=== PATIENT | female | born 1985 | race Caucasian/White ===

== ENCOUNTER 2020-04-01 07:53 | Outpatient (REF) | payer OTHER, SELFPAY ==
[2020-04-01 11:21] LABS: Free T4 (Free Thyroxine) 1.34 ng/dL (0.71-1.85); Thyroid Stimulating Hormone 2.39 mIU/mL (0.32-4.0)
[2020-04-05 06:27] LABS: Thyroglobulin Antibody <1 IU/mL (<=1); Thyroglobulin Level <0.1 ng/mL
== END 2020-04-01 07:54 | disposition home or self-care (01) ==
LOC: HO.LAB 07:53
PROVIDERS: PCP Pediatrics; Visit Provider Internal Medicine Endocrinology, Diabetes & Metabolism
DX: E89.0 Postprocedural hypothyroidism (principal)
CPT/HCPCS: 36415; 84432; 84439; 84443; 86800

== ENCOUNTER → 2020-04-06 14:47 | Outpatient (BNVA) | payer OTHER, SELFPAY | PROVIDERS: Referring Provider Pediatrics; Visit Provider Internal Medicine Endocrinology, Diabetes & Metabolism | DX: Z76.89 Persons encountering health services in other specified circumstances (principal) ==

== ENCOUNTER 2020-07-06 15:46 | Outpatient (REF) | payer OTHER, SELFPAY ==
[2020-07-06 17:12] LABS: Free T4 (Free Thyroxine) 1.22 ng/dL (0.71-1.85); Thyroid Stimulating Hormone 1.82 uIU/mL (0.32-4.0)
== END 2020-07-06 15:47 | disposition home or self-care (01) ==
LOC: HO.LAB 15:46
PROVIDERS: PCP Pediatrics; Visit Provider Internal Medicine Endocrinology, Diabetes & Metabolism
DX: E89.0 Postprocedural hypothyroidism (principal)
CPT/HCPCS: 36415; 84439; 84443

== ENCOUNTER 2020-09-30 12:38 | Outpatient (REF) | payer OTHER, SELFPAY ==
--- NOTE | ~2020-09-30 | US_ITS ---
EXAMINATION: US SOFT TISSUE NECK CLINICAL INFORMATION: Postprocedural hypothyroidism.Total thyroidectomy. COMPARISON: Ultrasound thyroid soft tissues neck 07/24/2017 and 09/04/2014. TECHNIQUE: Ultrasound of the neck soft tissues is performed with high-frequency mohan-scale imaging and color Doppler. FINDINGS: THYROID BED: Prior thyroidectomy. No residual thyroid tissue demonstrated in the thyroid bed. No cystic or solid nodules demonstrated in the thyroid bed. RIGHT NECK SOFT TISSUES: Scattered architecturally normal nodes are present. The nodes show normal fatty hilus, normal cortical thickness, and no cystic change or calcification. No abnormal color flow. The largest nodes are as follows: Level 1A: 1.0 x 0.5 x 0.6 cm. Normal jaquan architecture. Level 2: 3.7 x 0.7 x 1.2 cm. Normal jaquan architecture. LEFT NECK SOFT TISSUES: Scattered architecturally normal nodes are present. The nodes show normal fatty hilus, normal cortical thickness, and no cystic change or calcification. No abnormal color flow. The largest nodes are as follows: Level 2: 2.3 x 0.5 x 1.1 cm. Normal jaquan architecture. Level 2: 1.0 x 0.4 x 0.6 cm. Normal jaquan architecture. Level 3:1.9 x 0.2 x 0.6 M. Normal jaquan architecture. US/US soft tiss head and/or neck IMPRESSION: 1. Multiple lung nodules. 2. Bilateral benign neck lymph nodes.
[2020-09-30 14:27] LABS: Free T4 (Free Thyroxine) 1.02 ng/dL (0.71-1.85); Thyroid Stimulating Hormone 2.34 uIU/mL (0.32-4.0)
[2020-10-04 06:01] LABS: Thyroglobulin Antibody <1 IU/mL (<=1); Thyroglobulin Level <0.1 ng/mL
== END 2020-09-30 12:39 | disposition home or self-care (01) ==
LOC: HO.US 12:38
PROVIDERS: PCP Pediatrics; Visit Provider Internal Medicine Endocrinology, Diabetes & Metabolism
DX: E89.0 Postprocedural hypothyroidism (principal)
CPT/HCPCS: 36415; 76536; 84432; 84439; 84443; 86800

== ENCOUNTER → 2020-10-05 13:53 | Outpatient (BNVA) | payer OTHER, SELFPAY | PROVIDERS: PCP Pediatrics; Visit Provider Internal Medicine Endocrinology, Diabetes & Metabolism ==

== ENCOUNTER 2020-12-30 07:48 | Outpatient (REF) | payer OTHER, SELFPAY ==
[2020-12-30 09:32] LABS: Free T4 (Free Thyroxine) 1.41 ng/dL (0.71-1.85); Thyroid Stimulating Hormone 0.56 uIU/mL (0.32-4.0)
[2021-01-03 04:07] LABS: Thyroglobulin Antibody <1 IU/mL (<=1); Thyroglobulin Level <0.1 ng/mL
== END 2020-12-30 07:49 | disposition home or self-care (01) ==
LOC: HO.LAB 07:48
PROVIDERS: PCP Pediatrics; Visit Provider Internal Medicine Endocrinology, Diabetes & Metabolism
DX: Z85.850 Personal history of malignant neoplasm of thyroid (principal)
CPT/HCPCS: 36415; 84432; 84439; 84443; 86800

== ENCOUNTER 2021-02-01 15:32 | Outpatient (REF) | payer OTHER, SELFPAY ==
[2021-02-01 16:28] LABS: Thyroid Stimulating Hormone 0.41 uIU/mL (0.32-4.0)
== END 2021-02-01 15:33 | disposition home or self-care (01) ==
LOC: HO.LAB 15:32
PROVIDERS: PCP Pediatrics; Visit Provider Internal Medicine Endocrinology, Diabetes & Metabolism
DX: E89.0 Postprocedural hypothyroidism (principal); Z85.850 Personal history of malignant neoplasm of thyroid
CPT/HCPCS: 36415; 84439; 84443

== ENCOUNTER 2021-03-22 08:59 | Outpatient (REF) | payer OTHER, SELFPAY ==
[2021-03-22 10:12] LABS: Free T4 (Free Thyroxine) 1.33 ng/dL (0.71-1.85); Thyroid Stimulating Hormone 0.15 uIU/mL (0.32-4.0)
== END 2021-03-22 09:00 | disposition home or self-care (01) ==
LOC: HO.LAB 08:59
PROVIDERS: PCP Pediatrics; Visit Provider Internal Medicine
DX: E89.0 Postprocedural hypothyroidism (principal)
CPT/HCPCS: 36415; 84439; 84443

== ENCOUNTER → 2021-03-29 07:26 | Outpatient (BNVA) | payer OTHER, SELFPAY | PROVIDERS: PCP Pediatrics; Visit Provider Internal Medicine ==

== ENCOUNTER 2021-05-03 14:18 | Outpatient (REF) | payer OTHER, SELFPAY ==
[2021-05-03 15:47] LABS: Free T4 (Free Thyroxine) 1.22 ng/dL (0.71-1.85); Thyroid Stimulating Hormone 0.95 uIU/mL (0.32-4.0)
[2021-05-04 10:36] LABS: Thyroglobulin <0.1 ng/mL; Thyroglobulin Antibodies <1 IU/mL (< or = 1)
== END 2021-05-03 14:19 | disposition home or self-care (01) ==
LOC: HO.LAB 14:18
PROVIDERS: PCP Pediatrics; Visit Provider Internal Medicine
DX: Z85.850 Personal history of malignant neoplasm of thyroid (principal)
CPT/HCPCS: 36415; 84432; 84439; 84443; 86800

== ENCOUNTER 2021-06-14 14:25 | Outpatient (REF) | payer OTHER, SELFPAY ==
[2021-06-14 15:29] LABS: Free T4 (Free Thyroxine) 1.21 ng/dL (0.71-1.85); Thyroid Stimulating Hormone 0.76 uIU/mL (0.32-4.0)
== END 2021-06-14 14:26 | disposition home or self-care (01) ==
LOC: HO.LAB 14:25
PROVIDERS: PCP Pediatrics; Visit Provider Internal Medicine
DX: Z85.850 Personal history of malignant neoplasm of thyroid (principal)
CPT/HCPCS: 36415; 84439; 84443

== ENCOUNTER → 2021-06-23 09:26 | Outpatient (BNVA) | payer OTHER, SELFPAY | PROVIDERS: PCP Pediatrics; Visit Provider Internal Medicine ==

== ENCOUNTER 2021-08-09 14:36 | Outpatient (REF) | payer OTHER, SELFPAY ==
[2021-08-09 16:20] LABS: Free T4 (Free Thyroxine) 0.97 ng/dL (0.71-1.85); Thyroid Stimulating Hormone 0.49 uIU/mL (0.32-4.0)
== END 2021-08-09 14:37 | disposition home or self-care (01) ==
LOC: HO.LAB 14:36
PROVIDERS: PCP Pediatrics; Visit Provider Internal Medicine
DX: E89.0 Postprocedural hypothyroidism (principal)
CPT/HCPCS: 36415; 84439; 84443

== ENCOUNTER 2021-09-03 08:34 | Outpatient (REF) | payer OTHER, SELFPAY ==
[2021-09-03 09:51] LABS: Thyroid Stimulating Hormone 0.58 uIU/mL (0.32-4.0)
== END 2021-09-03 08:35 | disposition home or self-care (01) ==
LOC: HO.LAB 08:34
PROVIDERS: PCP Pediatrics; Visit Provider Internal Medicine
DX: E89.0 Postprocedural hypothyroidism (principal)
CPT/HCPCS: 36415; 84443

== ENCOUNTER → 2021-09-06 14:57 | Outpatient (BNVA) | payer OTHER, SELFPAY | PROVIDERS: PCP Pediatrics; Visit Provider Internal Medicine | DX: E89.0 Postprocedural hypothyroidism (principal); R59.0 Localized enlarged lymph nodes; Z79.899 Other long term (current) drug therapy; Z85.850 Personal history of malignant neoplasm of thyroid | CPT/HCPCS: 99212 ==

== ENCOUNTER 2021-11-11 10:41 | Outpatient (REF) | payer BC, SELFPAY ==
[2021-11-11 14:13] LABS: Free T4 (Free Thyroxine) 1.36 ng/dL (0.71-1.85); Thyroid Stimulating Hormone 0.02 uIU/mL (0.32-4.0)
== END 2021-11-11 10:42 | disposition home or self-care (01) ==
LOC: HO.WFDLDS 10:41
PROVIDERS: Visit Provider Internal Medicine
DX: E89.0 Postprocedural hypothyroidism (principal)
CPT/HCPCS: 36415; 84439; 84443

== ENCOUNTER 2021-12-20 12:35 | Outpatient (REF) | payer OTHER, SELFPAY ==
[2021-12-20 14:54] LABS: Thyroid Stimulating Hormone 0.08 uIU/mL (0.32-4.0)
== END 2021-12-20 12:36 | disposition home or self-care (01) ==
LOC: HO.WFDLDS 12:35
PROVIDERS: Visit Provider Internal Medicine
DX: E89.0 Postprocedural hypothyroidism (principal)
CPT/HCPCS: 36415; 84439; 84443

== ENCOUNTER 2022-01-31 10:49 | Outpatient (REF) | payer OTHER, SELFPAY ==
[2022-01-31 14:41] LABS: Free T4 (Free Thyroxine) 1.25 ng/dL (0.71-1.85)
== END 2022-01-31 10:50 | disposition home or self-care (01) ==
LOC: HO.WFDLDS 10:49
PROVIDERS: Visit Provider Internal Medicine
DX: E89.0 Postprocedural hypothyroidism (principal)
CPT/HCPCS: 36415; 84439; 84443

== ENCOUNTER 2022-03-21 12:41 | Outpatient (REF) | payer OTHER, SELFPAY ==
[2022-03-21 14:13] LABS: Free T4 (Free Thyroxine) 1.18 ng/dL (0.71-1.85); Thyroid Stimulating Hormone 1.95 uIU/mL (0.32-4.0)
== END 2022-03-21 12:42 | disposition home or self-care (01) ==
LOC: HO.LAB 12:41
PROVIDERS: PCP Pediatrics; Visit Provider Internal Medicine
DX: E89.0 Postprocedural hypothyroidism (principal)
CPT/HCPCS: 36415; 84439; 84443

== ENCOUNTER 2022-04-29 07:03 | Outpatient (REF) | payer OTHER, SELFPAY ==
[2022-04-29 12:21] LABS: Thyroid Stimulating Hormone 9.97 uIU/mL (0.32-4.0)
== END 2022-04-29 07:04 | disposition home or self-care (01) ==
LOC: HO.WFDLDS 07:03
PROVIDERS: Visit Provider Internal Medicine
DX: E89.0 Postprocedural hypothyroidism (principal)
CPT/HCPCS: 36415; 84443

== ENCOUNTER 2022-06-24 07:07 | Outpatient (REF) | payer OTHER, SELFPAY ==
[2022-06-24 12:49] LABS: Free T4 (Free Thyroxine) 1.27 ng/dL (0.71-1.85); Thyroid Stimulating Hormone 2.88 uIU/mL (0.32-4.0)
== END 2022-06-24 07:08 | disposition home or self-care (01) ==
LOC: HO.WFDLDS 07:07
PROVIDERS: Visit Provider Internal Medicine
DX: E89.0 Postprocedural hypothyroidism (principal)
CPT/HCPCS: 36415; 84439; 84443

== ENCOUNTER 2022-08-12 07:05 | Outpatient (REF) | payer OTHER, SELFPAY ==
[2022-08-12 12:13] LABS: Free T4 (Free Thyroxine) 1.18 ng/dL (0.71-1.85); Thyroid Stimulating Hormone 2.16 uIU/mL (0.32-4.0)
== END 2022-08-12 07:06 | disposition home or self-care (01) ==
LOC: HO.WFDLDS 07:05
PROVIDERS: Visit Provider Internal Medicine
DX: E89.0 Postprocedural hypothyroidism (principal)
CPT/HCPCS: 36415; 84439; 84443

== ENCOUNTER 2022-10-21 07:10 | Outpatient (REF) | payer OTHER, SELFPAY ==
[2022-10-21 12:17] LABS: Free T4 (Free Thyroxine) 1.29 ng/dL (0.71-1.85); Thyroid Stimulating Hormone 1.19 uIU/mL (0.32-4.0)
== END 2022-10-21 07:11 | disposition home or self-care (01) ==
LOC: HO.WFDLDS 07:10
PROVIDERS: Visit Provider Internal Medicine
DX: E89.0 Postprocedural hypothyroidism (principal)
CPT/HCPCS: 36415; 84439; 84443

== ENCOUNTER 2023-01-03 12:30 | Outpatient (REF) | payer OTHER, SELFPAY ==
[2023-01-03 20:33] LABS: Free T4 (Free Thyroxine) 1.11 ng/dL (0.71-1.85); Thyroid Stimulating Hormone 1.44 uIU/mL (0.32-4.0)
[2023-01-07 07:18] LABS: Thyroglobulin Antibody <1 IU/mL (<=1); Thyroglobulin Level <0.1 ng/mL
== END 2023-01-03 12:31 | disposition home or self-care (01) ==
LOC: HO.WFDLDS 12:30
PROVIDERS: Visit Provider Internal Medicine
DX: Z85.850 Personal history of malignant neoplasm of thyroid (principal)
CPT/HCPCS: 36415; 84432; 84439; 84443; 86800

== ENCOUNTER 2023-04-26 07:07 | Outpatient (REF) | payer OTHER, SELFPAY ==
[2023-04-26 12:02] LABS: Thyroid Stimulating Hormone 8.23 uIU/mL (0.32-4.0)
== END 2023-04-26 07:08 | disposition home or self-care (01) ==
LOC: HO.WFDLDS 07:07
PROVIDERS: Visit Provider Internal Medicine Endocrinology, Diabetes & Metabolism
DX: E89.0 Postprocedural hypothyroidism (principal)
CPT/HCPCS: 36415; 84439; 84443

== ENCOUNTER 2023-07-06 07:23 | Outpatient (REF) | payer OTHER, SELFPAY | END 2023-07-06 07:24 | disposition home or self-care (01) | LOC: HO.WFDLDS 07:23 | PROVIDERS: Visit Provider Internal Medicine Endocrinology, Diabetes & Metabolism | DX: Z13.89 Encounter for screening for other disorder (principal) ==

== ENCOUNTER 2023-07-07 07:13 | Outpatient (REF) | payer OTHER, SELFPAY ==
[2023-07-07 13:01] LABS: Free T4 (Free Thyroxine) 1.06 ng/dL (0.71-1.85); Thyroid Stimulating Hormone 2.73 uIU/mL (0.32-4.0)
[2023-07-11 06:28] LABS: Thyroglobulin Antibody <1 IU/mL (<=1); Thyroglobulin Level <0.1 ng/mL
== END 2023-07-07 07:14 | disposition home or self-care (01) ==
LOC: HO.WFDLDS 07:13
PROVIDERS: Visit Provider Internal Medicine Endocrinology, Diabetes & Metabolism
DX: Z85.850 Personal history of malignant neoplasm of thyroid (principal)
CPT/HCPCS: 36415; 84432; 84439; 84443; 86800

== ENCOUNTER 2023-07-10 16:35 | Outpatient (AMB) | payer OTHER, SELFPAY ==
--- NOTE | 2023-07-10 16:37 | MHC.OFFVIS ---
Intake Vital Signs 07/10/23 16:38 Height 5 ft 4 in Weight 162 lb 4.163 oz BMI 27.8 BP 110/70 Blood Pressure Location Rt brachial Position Sitting Pulse 64 Pulse Source Pulse Oximeter Intake Visit Reasons: Thyroid cancer-lvm Intake Note: Patient presents today for Thyroid Cancer, last seen by Dr. Flores on 09/06/2021. 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 She was previously followed by Dr. Garcia. The patient last saw Dr. Flores on 09/06/2021 She had a total thyroidectomy 10/14/[address] Harmon which revealed a 0.7 cm focus of papillary thyroid cancer. There was no extrathyroidal extension, no lymphatic invasion, margins were free of tumor, and there were 0/3 lymph nodes positive for metastatic thyroid cancer. She was not treated with I-131. She remains on Levothyroxine 137 mcg QD She reports feeling well other than fatigue. She has never had stimulated TG levels assessed. 12/30/2020 labs revealed TSH 0.56, TG <0.1 and TGAb <1. She had an US of the head and neck 09/30/2020 which revealed multiple enlarged cervical lymph nodes, but all with normal morphology. US Head and Neck: 09/30/2020 FINDINGS: THYROID BED: Prior thyroidectomy. No residual thyroid tissue demonstrated in the thyroid bed. No cystic or solid nodules demonstrated in the thyroid bed. RIGHT NECK SOFT TISSUES: Scattered architecturally normal nodes are present. The nodes show normal fatty hilus, normal cortical thickness, and no cystic change or calcification. No abnormal color flow. The largest nodes are as follows: Level 1A: 1.0 x 0.5 x 0.6 cm.? Normal jaquan architecture. Level 2: 3.7 x 0.7 x 1.2 cm.? Normal jaquan architecture. LEFT NECK SOFT TISSUES: Scattered architecturally normal nodes are present. The nodes show normal fatty hilus, normal cortical thickness, and no cystic change or calcification. No abnormal color flow. The largest nodes are as follows: Level 2: 2.3 x 0.5 x 1.1 cm.? Normal jaquan architecture. Level 2: 1.0 x 0.4 x 0.6 cm.? Normal jaquan architecture. Level 3:1.9 x 0.2 x 0.6 M. Normal jaquan architecture. Labs: Laboratory Tests 09/03/21 08:47 TSH 0.58 PFSH Medical History Cervical lymphadenopathy History of thyroid cancer Post-surgical hypothyroidism Surgical History Hx of total thyroidectomy Family History Father No problems noted. Mother Thyroid disease Social History Alcohol intake: never Patient Tobacco Use Status: Never used Tobacco Physical Exam Vital Signs: BMI result Body Mass Index 27.8 Const Other: Healed scar status post thyroidectomy. There is the absence of palpable cervical adenopathy Assessment & Plan Assessment & Plan (1) History of thyroid cancer: Code(s): Z85.850 - Personal history of malignant neoplasm of thyroid Plan: Is a 37-year-old female with a history of 0.7 cm focus of papillary thyroid cancer. There was no extrathyroidal extension, no lymphatic invasion, margins were free of tumor, and there were 0/3 lymph nodes positive for metastatic thyroid cancer. She is currently on 137 mcg levothyroxine . She appears to be clinically and biochemically euthyroid. Plan is to check a thyroglobulin level when available. Will also repeat neck ultrasound. Depending upon the above will determine goal of TSH level Orders: Orders US thyroid Today Z85.850 - Personal history of malignant neoplasm of thyroid Coding Level of Care Code Est Pt Level 3 (68480) Diagnoses History of thyroid cancer Z85.850
[2023-07-10 16:38] VITALS: BP 110/70; PULSE 64; BMI 27.8
== END 2023-07-10 16:55 | disposition home or self-care (01) ==
PROVIDERS: PCP Pediatrics; Visit Provider Internal Medicine Endocrinology, Diabetes & Metabolism
DX: Z85.850 Personal history of malignant neoplasm of thyroid (principal)
CPT/HCPCS: 99213

== ENCOUNTER → 2023-07-10 16:35 | Outpatient (BNVA) | payer OTHER, SELFPAY | PROVIDERS: PCP Pediatrics; Visit Provider Internal Medicine Endocrinology, Diabetes & Metabolism ==

== ENCOUNTER 2023-12-11 08:31 | Outpatient (REF) | payer SELFPAY ==
--- NOTE | ~2023-12-11 | US_ITS ---
EXAMINATION: US SOFT TISSUE HEAD/NECK CLINICAL INFORMATION: Personal history of malignant neoplasm of thyroid. COMPARISON: Ultrasound soft tissue neck 09/30/2020. Thyroid ultrasound. 05/31/2018. Ultrasound-guided thyroid biopsy 09/04/2014. TECHNIQUE: Linear transducer grayscale and color Doppler examination of the thyroid bed and surrounding soft tissue. FINDINGS: THYROID BED: Prior thyroidectomy. No residual thyroid tissue demonstrated in the thyroid bed. No cystic or solid nodules demonstrated in the thyroid bed. RIGHT NECK SOFT TISSUES: Scattered architecturally normal nodes are present. The nodes show normal fatty hilus, normal cortical thickness, and no cystic change or calcification. No abnormal color flow. The largest nodes are as follows: Level 1A: 0.7 x 0.4 x 0.3 cm. Normal jaquan architecture. Level 2: 1.0 x 0.4 x 0.5 cm. Normal jaquan architecture. Level 5A: 0.8 x 0.3 x 0.3 cm. Normal jaquan architecture. Level 5B: 0.9 x 0.3 x 0.3 cm. Normal jaquan architecture. Level 5B: 1.2 x 0.4 x 0.3 cm. Normal jaquan architecture. LEFT NECK SOFT TISSUES: Scattered architecturally normal nodes are present. The nodes show normal fatty hilus, normal cortical thickness, and no cystic change or calcification. No abnormal color flow. The largest nodes are as follows: Level 1A: 0.6 x 0.4 x 0.3 cm. Normal jaquan architecture. Level 1A: 1.0 x 0.3 x 0.3 cm. Normal jaquan architecture. Level 2: 1.0 x 0.3 x 0.5 cm. Normal jaquan architecture. Level 5A: 1.2 x 0.4 x 0.4 cm. Normal jaquan architecture. Level 5A: 1.3 x 0.3 x 0.3 cm. Normal jaquan architecture. Level 5A: 0.7 x 0.4 x 0.6 cm. Normal jaquan architecture. US/US soft tiss head and/or neck IMPRESSION: 1. The thyroid gland is surgically absent. No abnormal mass or fluid collection is seen within the former left thyroid bed. 2. There are multiple shotty, nonpathologic enlarged bilateral cervical lymph nodes. These show normal articulation. Recommend management on a clinical basis. No sizable lymphadenopathy is seen.
== END 2023-12-11 08:32 | disposition home or self-care (01) ==
LOC: HO.US 08:31
PROVIDERS: PCP Student in an Organized Health Care Education/Training Program; Visit Provider Internal Medicine Endocrinology, Diabetes & Metabolism
DX: Z85.850 Personal history of malignant neoplasm of thyroid (principal)
CPT/HCPCS: 76536

== ENCOUNTER 2024-01-08 10:48 | Outpatient (REF) | payer OTHER, SELFPAY ==
[2024-01-08 15:06] LABS: TSH reflex Free T4 6.87 uIU/mL (0.32-4.0)
== END 2024-01-08 10:49 | disposition home or self-care (01) ==
LOC: HO.WFDLDS 10:48
PROVIDERS: Visit Provider Physician Assistant
DX: E89.0 Postprocedural hypothyroidism (principal); Z85.850 Personal history of malignant neoplasm of thyroid
CPT/HCPCS: 36415; 84439; 84443

== ENCOUNTER 2024-01-15 08:18 | Outpatient (AMB) | payer OTHER, SELFPAY ==
[2024-01-15 08:19] VITALS: BP 102/56; PULSE 64; BMI 28.9
--- NOTE | 2024-01-15 08:19 | A.OFFVIS_ITS ---
Vital Signs 01/15/24 08:19 Height 5 ft 4 in Weight 168 lb 6.931 oz BMI 28.9 BP 102/56 L Blood Pressure Location Lt brachial Position Sitting Pulse 64 Pulse Source Pulse Oximeter Intake Visit Reasons: Thyroid cancer-confirmed Intake Note: Patient present today for Thyroid cancer follow up visit. 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 She was previously followed by Dr. Garcia. She had a total thyroidectomy 10/14/[address] Harmon which revealed a 0.7 cm focus of papillary thyroid cancer. There was no extrathyroidal extension, no lymphatic invasion, margins were free of tumor, and there were 0/3 lymph nodes positive for metastatic thyroid cancer. She was not treated with I-131. She remains on Levothyroxine 137 mcg QD She reports feeling well other than fatigue. She has never had stimulated TG levels assessed. 12/30/2020 labs revealed TSH 0.56, TG <0.1 and TGAb <1. She had an US of the head and neck 09/30/2020 which revealed multiple enlarged cervical lymph nodes, but all with normal morphology. US Head and Neck: 09/30/2020 FINDINGS: THYROID BED: Prior thyroidectomy. No residual thyroid tissue demonstrated in the thyroid bed. No cystic or solid nodules demonstrated in the thyroid bed. RIGHT NECK SOFT TISSUES: Scattered architecturally normal nodes are present. The nodes show normal fatty hilus, normal cortical thickness, and no cystic change or calcification. No abnormal color flow. The largest nodes are as follows: Level 1A: 1.0 x 0.5 x 0.6 cm.? Normal jaquan architecture. Level 2: 3.7 x 0.7 x 1.2 cm.? Normal jaquan architecture. LEFT NECK SOFT TISSUES: Scattered architecturally normal nodes are present. The nodes show normal fatty hilus, normal cortical thickness, and no cystic change or calcification. No abnormal color flow. The largest nodes are as follows: Level 2: 2.3 x 0.5 x 1.1 cm.? Normal jaquan architecture. Level 2: 1.0 x 0.4 x 0.6 cm.? Normal jaquan architecture. Level 3:1.9 x 0.2 x 0.6 M. Normal jaquan architecture. Labs: Laboratory Tests 09/03/21 08:47 TSH 0.58 PFSH Medical History Cervical lymphadenopathy History of thyroid cancer Post-surgical hypothyroidism Surgical History Hx of total thyroidectomy Family History Father No problems noted. Mother Thyroid disease Social History Alcohol intake: never Patient Tobacco Use Status: Never used Tobacco Physical Exam Const Other: Healed scar status post thyroidectomy. There is the absence of palpable cervical adenopathy Assessment & Plan Assessment & Plan (1) History of thyroid cancer: Code(s): Z85.850 - Personal history of malignant neoplasm of thyroid Category: Medical Plan: Is a 37-year-old female with a history of 0.7 cm focus of papillary thyroid cancer. There was no extrathyroidal extension, no lymphatic invasion, margins were free of tumor, and there were 0/3 lymph nodes positive for metastatic thyroid cancer. She is currently on 150 mcg levothyroxine dose just increased . She appears to be clinically and biochemically euthyroid. Plan is to check TSH and free T4 in 4 weeks time keep TSH < 2.5 as neck ultrasounds and thyroglobulin been undetectable Orders: Orders Free T4 (Free Thyroxine) 4 Weeks E89.0 - Postprocedural hypothyroidism, Z85.850 - Personal history of malignant neoplasm of thyroid Thyroid Stimulating Hormone 4 Weeks E89.0 - Postprocedural hypothyroidism, Z85.850 - Personal history of malignant neoplasm of thyroid Coding Level of Care Code Est Pt Level 3 (52028) Diagnoses History of thyroid cancer Z85.850
== END 2024-01-15 08:30 | disposition home or self-care (01) ==
PROVIDERS: PCP Student in an Organized Health Care Education/Training Program; Visit Provider Internal Medicine Endocrinology, Diabetes & Metabolism
DX: Z85.850 Personal history of malignant neoplasm of thyroid (principal)
CPT/HCPCS: 99213

== ENCOUNTER → 2024-01-15 08:18 | Outpatient (BNVA) | payer OTHER, SELFPAY | PROVIDERS: PCP Student in an Organized Health Care Education/Training Program; Visit Provider Internal Medicine Endocrinology, Diabetes & Metabolism ==

== ENCOUNTER 2024-03-11 15:24 | Outpatient (REF) | payer OTHER, SELFPAY ==
[2024-03-11 16:31] LABS: Free T4 (Free Thyroxine) 1.18 ng/dL (0.71-1.85); Thyroid Stimulating Hormone 5.27 uIU/mL (0.32-4.0)
== END 2024-03-11 15:25 | disposition home or self-care (01) ==
LOC: HO.LAB 15:24
PROVIDERS: Visit Provider Internal Medicine Endocrinology, Diabetes & Metabolism
DX: E89.0 Postprocedural hypothyroidism (principal); Z85.850 Personal history of malignant neoplasm of thyroid
CPT/HCPCS: 36415; 84439; 84443

== ENCOUNTER 2024-04-19 08:04 | Outpatient (REF) | payer OTHER, SELFPAY ==
[2024-04-19 12:30] LABS: Free T4 (Free Thyroxine) 1.45 ng/dL (0.71-1.85)
== END 2024-04-19 08:05 | disposition home or self-care (01) ==
LOC: HO.WFDLDS 08:04
PROVIDERS: Visit Provider Internal Medicine Endocrinology, Diabetes & Metabolism
DX: E89.0 Postprocedural hypothyroidism (principal)
CPT/HCPCS: 36415; 84439; 84443

== ENCOUNTER 2024-05-20 14:54 | Outpatient (AMB) | payer OTHER, SELFPAY ==
--- NOTE | 2024-05-20 15:10 | MHC.OFFVIS ---
Vital Signs 05/20/24 15:12 Height 5 ft 4 in Weight 165 lb BMI 28.3 BP 112/70 Blood Pressure Location Rt brachial Position Sitting Pulse 63 Pulse Source Pulse Oximeter Intake Visit Reasons: f/u thyroid cancer Intake Note: Patient present today for Thyroid cancer follow up visit. 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 She was previously followed by Dr. Garcia. She had a total thyroidectomy 10/14/[address] Harmon which revealed a 0.7 cm focus of papillary thyroid cancer. There was no extrathyroidal extension, no lymphatic invasion, margins were free of tumor, and there were 0/3 lymph nodes positive for metastatic thyroid cancer. She was not treated with I-131. She remains on Levothyroxine 137 mcg QD She reports feeling well other than fatigue. She has never had stimulated TG levels assessed. 12/30/2020 labs revealed TSH 0.56, TG <0.1 and TGAb <1. She had an US of the head and neck 09/30/2020 which revealed multiple enlarged cervical lymph nodes, but all with normal morphology. US Head and Neck: 09/30/2020 FINDINGS: THYROID BED: Prior thyroidectomy. No residual thyroid tissue demonstrated in the thyroid bed. No cystic or solid nodules demonstrated in the thyroid bed. RIGHT NECK SOFT TISSUES: Scattered architecturally normal nodes are present. The nodes show normal fatty hilus, normal cortical thickness, and no cystic change or calcification. No abnormal color flow. The largest nodes are as follows: Level 1A: 1.0 x 0.5 x 0.6 cm.? Normal jaquan architecture. Level 2: 3.7 x 0.7 x 1.2 cm.? Normal jaquan architecture. LEFT NECK SOFT TISSUES: Scattered architecturally normal nodes are present. The nodes show normal fatty hilus, normal cortical thickness, and no cystic change or calcification. No abnormal color flow. The largest nodes are as follows: Level 2: 2.3 x 0.5 x 1.1 cm.? Normal jaquan architecture. Level 2: 1.0 x 0.4 x 0.6 cm.? Normal jaquan architecture. Level 3:1.9 x 0.2 x 0.6 M. Normal jaquan architecture. Labs: Laboratory Tests 09/03/21 08:47 TSH 0.58 currently on 175 ug mcg levothyroxine [facility] Medical History Cervical lymphadenopathy History of thyroid cancer Post-surgical hypothyroidism Surgical History Hx of total thyroidectomy Family History Father No problems noted. Mother Thyroid disease Social History Alcohol intake: never Patient Tobacco Use Status: Never used Tobacco Physical Exam Vital Signs: BMI result Body Mass Index 28.3 Const Other: Healed scar status post thyroidectomy. There is the absence of palpable cervical adenopathy Assessment & Plan Assessment & Plan (1) History of thyroid cancer: Code(s): Z85.850 - Personal history of malignant neoplasm of thyroid Category: Medical Plan: Is a 37-year-old female with a history of 0.7 cm focus of papillary thyroid cancer. There was no extrathyroidal extension, no lymphatic invasion, margins were free of tumor, and there were 0/3 lymph nodes positive for metastatic thyroid cancer. She is currently on 175 mcg levothyroxine . She appears to be clinically and biochemically euthyroid. Plan is to continue current therapy. Will have patient follow up with Dr. Santiago martin [employer] french teacher in our practice with expertise in neck ultrasound Coding Level of Care Code Est Pt Level 3 (63614) Diagnoses History of thyroid cancer Z85.850
[2024-05-20 15:12] VITALS: BP 112/70; PULSE 63; BMI 28.3
== END 2024-05-20 15:24 | disposition home or self-care (01) ==
PROVIDERS: PCP Student in an Organized Health Care Education/Training Program; Visit Provider Internal Medicine Endocrinology, Diabetes & Metabolism
DX: Z85.850 Personal history of malignant neoplasm of thyroid (principal)
CPT/HCPCS: 99213

== ENCOUNTER → 2024-05-20 14:54 | Outpatient (BNVA) | payer OTHER, SELFPAY | PROVIDERS: PCP Student in an Organized Health Care Education/Training Program; Visit Provider Internal Medicine Endocrinology, Diabetes & Metabolism ==

== ENCOUNTER 2024-10-15 15:15 | Outpatient (REF) | payer OTHER, SELFPAY ==
[2024-10-15 18:31] LABS: Free T4 (Free Thyroxine) 1.27 ng/dL (0.71-1.85); Thyroid Stimulating Hormone 0.55 uIU/mL (0.32-4.0)
== END 2024-10-15 15:16 | disposition home or self-care (01) ==
LOC: HO.WFDLDS 15:15
PROVIDERS: Visit Provider Internal Medicine Endocrinology, Diabetes & Metabolism
DX: E89.0 Postprocedural hypothyroidism (principal)
CPT/HCPCS: 36415; 84439; 84443

== ENCOUNTER 2025-05-14 15:41 | Outpatient (REF) | payer OTHER, SELFPAY ==
[2025-05-14 19:22] LABS: Free T4 (Free Thyroxine) 1.21 ng/dL (0.71-1.85); Thyroid Stimulating Hormone 0.38 uIU/mL (0.32-4.0)
== END 2025-05-14 15:42 | disposition home or self-care (01) ==
LOC: HO.WFDLDS 15:41
PROVIDERS: Visit Provider Internal Medicine Endocrinology, Diabetes & Metabolism
DX: E89.0 Postprocedural hypothyroidism (principal); Z85.850 Personal history of malignant neoplasm of thyroid
CPT/HCPCS: 36415; 84432; 84439; 84443; 86800

== ENCOUNTER 2025-05-19 14:54 | Outpatient (AMB) | payer OTHER, SELFPAY ==
--- NOTE | 2025-05-19 14:55 | A.OFFVIS_ITS ---
Vital Signs 05/19/25 14:59 Height 5 ft 4 in Weight 173 lb 1.006 oz BMI 29.7 BP 94/62 Blood Pressure Location Rt brachial Position Sitting Pulse 70 Pulse Source Pulse Oximeter Pulse Oximetry (%) 100 Oxygen Delivery Method Room Air Intake Visit Reasons: f/u thyroid cancer Intake Note: Patient present today for Thyroid cancer follow up visit. 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 She had a total thyroidectomy 10/14/[address] Harmon which revealed a 0.7 cm focus of papillary thyroid cancer. There was no extrathyroidal extension, no lymphatic invasion, margins were free of tumor, and there were 0/3 lymph nodes positive for metastatic thyroid cancer. She was not treated with I-131. She remains on Levothyroxine 137 mcg QD She reports feeling well other than fatigue. She has never had stimulated TG levels assessed. 12/30/2020 labs revealed TSH 0.56, TG <0.1 and TGAb <1. She had an US of the head and neck 09/30/2020 which revealed multiple enlarged cervical lymph nodes, but all with normal morphology. US Head and Neck: 09/30/2020 FINDINGS: THYROID BED: Prior thyroidectomy. No residual thyroid tissue demonstrated in the thyroid bed. No cystic or solid nodules demonstrated in the thyroid bed. RIGHT NECK SOFT TISSUES: Scattered architecturally normal nodes are present. The nodes show normal fatty hilus, normal cortical thickness, and no cystic change or calcification. No abnormal color flow. The largest nodes are as follows: Level 1A: 1.0 x 0.5 x 0.6 cm.? Normal jaquan architecture. Level 2: 3.7 x 0.7 x 1.2 cm.? Normal jaquan architecture. LEFT NECK SOFT TISSUES: Scattered architecturally normal nodes are present. The nodes show normal fatty hilus, normal cortical thickness, and no cystic change or calcification. No abnormal color flow. The largest nodes are as follows: Level 2: 2.3 x 0.5 x 1.1 cm.? Normal jaquan architecture. Level 2: 1.0 x 0.4 x 0.6 cm.? Normal jaquan architecture. Level 3:1.9 x 0.2 x 0.6 M. Normal jaquan architecture. Labs: Laboratory Tests 09/03/21 08:47 TSH 0.58 currently on 175 ug mcg levothyroxine [facility] Medical History Cervical lymphadenopathy History of thyroid cancer Post-surgical hypothyroidism Surgical History Hx of total thyroidectomy Family History Father No problems noted. Mother Thyroid disease Social History Alcohol intake: never Patient Tobacco Use Status: Never used Tobacco Physical Exam Vital Signs: BMI result Body Mass Index 29.7 Const Other: Healed scar status post thyroidectomy. There is the absence of palpable cervical adenopathy Assessment & Plan Assessment & Plan (1) History of thyroid cancer: Code(s): Z85.850 - Personal history of malignant neoplasm of thyroid Category: Medical Plan: Is a 39-year-old female with a history of 0.7 cm focus of papillary thyroid cancer. There was no extrathyroidal extension, no lymphatic invasion, margins were free of tumor, and there were 0/3 lymph nodes positive for metastatic thyroid cancer. She is currently on 175 mcg levothyroxine . She appears to be clinically and biochemically euthyroid. Plan is to continue current therapy. Will have patient follow up with Dr. Henderson an payroll and benefits assistant in our practice with expertise in neck ultrasound in about 6 months Coding Level of Care Code Est Pt Level 3 (76522) Diagnoses History of thyroid cancer Z85.850
[2025-05-19 14:59] VITALS: BP 94/62; PULSE 70; O2SAT 100; BMI 29.7
--- OUTSIDE RECORDS SUMMARY | 2025-05-20 00:20 | XMS_ITS ---
Author Name [facility] Organization Unknown Care Team Organization Name Specialty Phone Email Start Date End Da te [facility] Panchito Fish DO Primary Care 06/20/202201/10 [facility] Termed, PROVIDER Primary Care 04/19/202201/10
== END 2025-05-19 15:09 | disposition home or self-care (01) ==
LOC: HO.ENCR 14:55
PROVIDERS: PCP Student in an Organized Health Care Education/Training Program; Visit Provider Internal Medicine Endocrinology, Diabetes & Metabolism
DX: Z85.850 Personal history of malignant neoplasm of thyroid (principal)
CPT/HCPCS: 99213